=== PATIENT | male | born 1960 | race Caucasian/White ===

== ENCOUNTER 2017-05-06 13:28 | Emergency (ER) | payer MEDICARE, MEDICAID, SELFPAY ==
[2017-05-06 13:29] VITALS: BP 139/92; PULSE 74; RESP 16; TEMP 36.7; O2SAT 99; BMI 23.9
--- NOTE | 2017-05-06 16:42 | ED.VISSUMM ---
- ER Visit Summary Date of Service: 05/06/17 Chief Complaint: Back pain [] History of Present Illness: The patient is a 56 M [presents to the emergency department with back pain for last for 5 days. Patient has a history of chronic back pain. Patient is in pain management with Dr. Torrez out of [facility]. Patient currently taking Percocet and Lyrica for his pain. Patient states that the pain medicine is not controlling his pain over the last 4-5 days. Patient denies any injury. Patient does have prior lumbar fusion and cervical fusion history. Not had any fever. He has not had any change in bowel or bladder function. He denies weakness in extremities. Pain is typical of his chronic pain.] Physical Examination: [HEENT-PERRLA, EOMI. Cranial nerves II through XII grossly intact. TMs clear. Mucous membranes moist. No adenopathy. Cardiovascular-regular rate and rhythm without murmur or ectopy Lungs-clear to auscultation, chest wall stable without crepitus or subcu emphysema Abdomen-normoactive bowel sounds, soft, nontender, no rebound or rigidity, no peritoneal signs. Back exam-patient has tenderness palpation over the right lumbar paraspinal musculature and lumbar spine diffusely. Patient has negative straight leg raises. Deep tendon reflexes plus out of 4 bilaterally at the patella and Achilles. Patient has normal L5 extension. Normal sensation to light touch. Extremities-intact ?4, normal range of motion, normal pulses, atraumatic] Test Results: [None indicated] Emergency Department Course and Treatment: [I attempted to contact Dr. Torrez unsuccessfully. Patient understands I cannot write him any prescriptions. 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 Patient advised to return if weakness in extremities, change in bowel or bladder function, or condition should worsen in any way.] Impression: Acute exacerbation of chronic back pain [] This note was generated with C-Note[employer] software. It may contain incorrect words, spelling, and punctuation that were not noted in review of the chart prior to signing ED Disposition - Plan for ED Patient: Chief Complaint: Back Referrals: Brian Chance MD [Primary Care Provider] -
--- NOTE | 2017-05-06 16:45 | ED.DCSUM_ITS ---
- ER Visit Summary Date of Service: 05/06/17 Chief Complaint: Back pain [] History of Present Illness: The patient is a 56 M [presents to the emergency department with back pain for last for 5 days. Patient has a history of chronic back pain. Patient is in pain management with Dr. Torrez out of [facility]. Patient currently taking Percocet and Lyrica for his pain. Patient states that the pain medicine is not controlling his pain over the last 4-5 days. Patient denies any injury. Patient does have prior lumbar fusion and cervical fusion history. Not had any fever. He has not had any change in bowel or bladder function. He denies weakness in extremities. Pain is typical of his chronic pain.] Physical Examination: [HEENT-PERRLA, EOMI. Cranial nerves II through XII grossly intact. TMs clear. Mucous membranes moist. No adenopathy. Cardiovascular-regular rate and rhythm without murmur or ectopy Lungs-clear to auscultation, chest wall stable without crepitus or subcu emphysema Abdomen-normoactive bowel sounds, soft, nontender, no rebound or rigidity, no peritoneal signs. Back exam-patient has tenderness palpation over the right lumbar paraspinal musculature and lumbar spine diffusely. Patient has negative straight leg raises. Deep tendon reflexes plus out of 4 bilaterally at the patella and Achilles. Patient has normal L5 extension. Normal sensation to light touch. Extremities-intact ?4, normal range of motion, normal pulses, atraumatic] Test Results: [None indicated] Emergency Department Course and Treatment: [I attempted to contact Dr. Torrez unsuccessfully. Patient understands I cannot write him any prescriptions. 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 Patient advised to return if weakness in extremities, change in bowel or bladder function, or condition should worsen in any way.] Impression: Acute exacerbation of chronic back pain [] This note was generated with [employer]Mom[employer] software. It may contain incorrect words, spelling, and punctuation that were not noted in review of the chart prior to signing ED Disposition - Plan for ED Patient: Chief Complaint: Back Referrals: Brian Chance MD [Primary Care Provider] -
--- NOTE | 2017-05-06 16:45 | ED.DEP ---
ED Disposition - Plan for ED Patient: Chief Complaint: Back Instructions: ED Neck Back Pain General Referrals: Brian Chance MD [Primary Care Provider] - 5-7 Days Additional Instructions: see your pain management doctor
[2017-05-06] MEDS: HYDROmorphone 1 MG/ML Syringe IM (16:54)
[2017-05-06 16:59] VITALS: BP 147/87; PULSE 60; RESP 18; O2SAT 100
== END 2017-05-06 17:22 | disposition home or self-care (01) ==
PROVIDERS: Emergency Provider Emergency Medicine; Family Provider Family Medicine; PCP Family Medicine
DX: G89.29 Other chronic pain (principal); M54.9 Dorsalgia, unspecified; J44.9 Chronic obstructive pulmonary disease, unspecified; F32.9 Major depressive disorder, single episode, unspecified; F41.9 Anxiety disorder, unspecified; Z98.1 Arthrodesis status; Z87.891 Personal history of nicotine dependence
CPT/HCPCS: 99282

== ENCOUNTER 2017-06-02 11:49 | Emergency (ER) | payer MEDICARE, MEDICAID, SELFPAY ==
[2017-06-02 11:52] VITALS: BP 119/77; PULSE 66; RESP 17; TEMP 36.4; O2SAT 97; BMI 21.7
--- NOTE | 2017-06-02 13:35 | ED.VISSUMM ---
- ER Visit Summary Date of Service: 06/02/17 Chief Complaint: I have thrush again and I want to be admitted History of Present Illness: The patient is a 56 M hx of prior oral thrush. Patient was a history of chronic back pain, depression and Hodgkin's lymphoma 10 years ago which is since resolved. Had oral thrush approximately 1 week. Physical Examination: Vital signs are stable afebrile. Middle-age male no acute distress. Pulse is 97%. HEENT exam shows oral thrush. Moist mucous membranes. Neck nontender no lymphadenopathy. He has no trouble swallowing or breathing. Lungs clear to auscultation bilaterally. Heart regular rate and rhythm no murmur. Abdomen soft nontender. Moving all 4 extremities. Neurovascular intact. Neurologically is awake alert no focal motor deficits. Test Results: Seizures white count of 5 H&H 1647. His lites which were unremarkable gap of 6 normal BUN and creatinine. Emergency Department Course and Treatment: Patient was treated with IV fluids. Oral Diflucan. He is doing well repeat exam at 1535 and will be discharged home. Treatment Plan: It with Diflucan for 1 week. And nystatin swish and swallow. Disposition: Discharge Impression: Acute oral thrush This note was generated with [employer] dictation software. It may contain incorrect words, spelling, and punctuation that were not noted in review of the chart prior to signing ED Disposition - Plan for ED Patient: Chief Complaint: Other, Pain/Inj Referrals: Brian Chance MD [Primary Care Provider] -
[2017-06-02] MEDS: 0.9% Normal Saline 1,000 ML 1000 ML IV (13:49)
[2017-06-02] MEDS: Fluconazole 100 MG Tablet 200 MG PO (13:49)
[2017-06-02 13:55] VITALS: RESP 16
[2017-06-02 14:02] LABS: Absolute Neutrophil Count 2.6 X10^3/uL (2.0-7.7); Basophil# 0.05 X10^3/uL; Basophil% 0.9 % (0-1); Eosinophil# 0.17 X10^3/uL; Eosinophils% 3.1 % (0-5); Hematocrit 47.7 % (40-54); Hemoglobin 16.7 g/dl (13.0-16.5); Lymphocyte % 39.9 % (19-41); Mean Corpuscular Hgb 33.3 pg (27.0-32.0); Mean Platelet Vol. 9.8 fl (6.2-12.0); Monocyte# 0.53 X10^3/uL; Monocyte% 9.6 % (0-10); Neutrophil # 2.56 X10^3/uL (2.7-7.7); Neutrophil % 46.3 % (47-70); Platelet Count 273 K/mm3 (150-450); RBC Distribution Width CV 13.1 % (11.6-14.6); RBC Distribution Width SD 44.7 fl (35.1-43.9); Red Blood Count 5.02 M/mm3 (4.6-6.2); White Blood Count 5.5 K/mm3 (4.4-11.0)
[2017-06-02 14:06] LABS: POSITIVE COUNT NO; POSITIVE DIFFERENTIAL NO; POSITIVE MORPHOLOGY NO
[2017-06-02 14:10] LABS: Anion Gap 6 (5-15); BUN 10 mg/dL (7-18); BUN/Creat Ratio 10.9 RATIO (10-20); Calcium,Total 8.4 mg/dL (8.5-10.1); Chloride 110 mmol/L (98-107); Creatinine, Serum 0.92 mg/dL (0.70-1.30); EST Glomerular Filtration Rate 90 mL/min (>60); Est Glom Filt Rate - Afr Amer 109 mL/min (>60); Estimated Creatinine Clearance 84.58 ml/min; Glucose 87 mg/dL (74-106); Potassium 4.1 mmol/L (3.5-5.1); Sodium Level 140 mmol/L (136-145)
--- NOTE | 2017-06-02 15:37 | ED.DEP ---
ED Disposition - Plan for ED Patient: Disposition: Home or Assisted Living Chief Complaint: Other, Pain/Inj Instructions: Oral Thrush Prescriptions: Fluconazole [Diflucan] 200 mg PO DAILY #7 tab Nystatin 100,000 unit PO 4X/DAY 10 Days oral.susp Referrals: Brian Chance MD [Primary Care Provider] - 1 Week if not improving Additional Instructions: Use both Diflucan once a day and the nystatin swish and swallow thrush. Plenty fluids and rest. Your blood count and electrolytes looked well today. There is no need to admit to the hospital. Follow-up his primary care physician to ensure your improving.
[2017-06-02 15:49] VITALS: BP 125/63; PULSE 58; RESP 17; O2SAT 99
--- NOTE | 2017-08-08 12:51 | CASEMGMT ---
Social Work Note EDCP completed and approved for distribution. Attempted to contact pt twice via phone and their vm is not setup. EDCP packet mailed out via certified mail this date. Certified Tracking Number: [id number] Lisette Long MSW, [employer]
== END 2017-06-02 15:50 | disposition home or self-care (01) ==
PROVIDERS: Emergency Provider Emergency Medicine; Family Provider Family Medicine; PCP Family Medicine
DX: B37.0 Candidal stomatitis (principal); R19.7 Diarrhea, unspecified; F32.9 Major depressive disorder, single episode, unspecified; Z85.71 Personal history of Hodgkin lymphoma; Z72.0 Tobacco use
CPT/HCPCS: 80048; 85025; 96360; 99285; J7030

== ENCOUNTER 2017-07-04 08:56 | Emergency (ER) | payer MEDICARE, MEDICAID, SELFPAY ==
[2017-07-04 08:59] VITALS: BP 114/78; PULSE 72; RESP 17; TEMP 36.8; O2SAT 95; BMI 21.1
--- NOTE | 2017-07-04 09:21 | ED.DCSUM_ITS ---
- ER Visit Summary Date of Service: 07/04/17 Chief Complaint: Thrush History of Present Illness: The patient is a [address] Chance. Patient reports that 2 days ago he believes that he developed thrush ago. Reports is an aching pain is gradually gotten worse is 10 out of 10 worsening a 10 currently. Is worsened by swelling. Is taking Percocet without relief. Reports the pain is mainly under his tongue. Physical Examination: Vitals: Stable. Afebrile. General: Well-nourished and well-developed. Head: Normocephalic atraumatic. HEENT: White plaque under the right side of his tongue that is consistent with thrush. This does not involve his uvula or soft palate. Neck: Supple, no lymphadenopathy. No JVD. Nontender. Cardiovascular: Regular rate and rhythm. No murmurs. Respiratory: No respiratory distress. Clear to auscultation bilaterally. Abdominal: Soft, nontender, nondistended, normal bowel sounds. No guarding, rebound, or peritoneal signs. Back: Nontender. Extremities: Nontender, no edema. Skin: Normal color, no rash. Neurologic: Alert and oriented ?3. Cranial nerves II through XII are intact. Normal strength and sensation. Psych: Normal affect. Emergency Department Course and Treatment: Patient is chronically on pain medication as discussed the fact that I will not give him further pain medication for this. Treatment Plan: He will be discharged with Chlortrimazole lozenges. Instructed to follow-up with Dr. Chance in 1 week if not improving. Disposition: To home in improved and stable condition. Impression: 1. Thrush. This note was generated with [employer] dictation software. It may contain incorrect words, spelling, and punctuation that were not noted in review of the chart prior to signing ED Disposition - Plan for ED Patient: Disposition: Home or Assisted Living Chief Complaint: Sore Throat Instructions: Oral Thrush Prescriptions: Clotrimazole 10 mg MM 5X/DAY #70 eliu Referrals: Brian Chance MD [Primary Care Provider] - 1 Week
[2017-07-04 09:40] VITALS: PULSE 81; RESP 22; O2SAT 97
--- NOTE | 2017-07-04 09:41 | ED.RN ---
THIS NURSE REVIEWED D/C INSTRUCTIONS WITH PT. PT VERBALIZED UNDERSTANDING OF INSTRUCTIONS. PT DENIES FURTHER NEEDS OR QUESTIONS AT THIS TIME. PT AMBULATES FROM ROOM ON OWN WITHOUT ASSISTANCE FROM STAFF
== END 2017-07-04 09:42 | disposition home or self-care (01) ==
LOC: ED 09:25
PROVIDERS: Emergency Provider Emergency Medicine; Family Provider Family Medicine; PCP Family Medicine
DX: B37.9 Candidiasis, unspecified (principal); J02.9 Acute pharyngitis, unspecified; R05 Cough; R11.0 Nausea; J44.9 Chronic obstructive pulmonary disease, unspecified; F17.210 Nicotine dependence, cigarettes, uncomplicated; Z85.72 Personal history of non-Hodgkin lymphomas
CPT/HCPCS: 99282

== ENCOUNTER 2017-07-11 14:12 | Emergency (ER) | payer MEDICARE, MEDICAID, SELFPAY ==
[2017-07-11 14:13] VITALS: BP 136/84; PULSE 66; RESP 15; TEMP 36.7; O2SAT 98; BMI 21.4
[2017-07-11] MEDS: Ketorolac 30 MG/ML Syringe IV (15:24)
[2017-07-11] MEDS: 0.9% Normal Saline 1,000 ML 999 ML IV (15:24)
[2017-07-11] MEDS: proCHLORPERazine 10 MG/2 ML Vial IV (15:24)
[2017-07-11] MEDS: DiphenhydrAMINE 50 MG/ML Syringe IV (15:24)
[2017-07-11 15:26] LABS: Absolute Lymphocyte Count 1.91 X10^3/ul (0.83-4.51); Absolute Neutrophil Count 3.1 X10^3/uL (2.0-7.7); Basophil# 0.05 X10^3/uL; Basophil% 0.9 % (0-1); Eosinophils% 1.8 % (0-5); Hematocrit 46.9 % (40-54); Hemoglobin 16.3 g/dl (13.0-16.5); Lymphocyte # 1.91 X10^3/ul (4.0); Lymphocyte % 34.3 % (19-41); Mean Corp Hgb Conc 34.8 g/gl (32-36); Mean Corpuscular Hgb 33.3 pg (27.0-32.0); Mean Corpuscular Volume 95.7 fL (80-94); Mean Platelet Vol. 9.6 fl (6.2-12.0); Monocyte# 0.41 X10^3/uL; Monocyte% 7.4 % (0-10); Neutrophil # 3.09 X10^3/uL (2.7-7.7); Neutrophil % 55.4 % (47-70); Platelet Count 267 K/mm3 (150-450); RBC Distribution Width CV 13.5 % (11.6-14.6); RBC Distribution Width SD 46.5 fl (35.1-43.9); White Blood Count 5.6 K/mm3 (4.4-11.0)
[2017-07-11 15:27] LABS: POSITIVE COUNT NO; POSITIVE DIFFERENTIAL NO; POSITIVE MORPHOLOGY NO
[2017-07-11 15:44] LABS: Anion Gap 5 (5-15); BUN 9 mg/dL (7-18); Calcium,Total 9.1 mg/dL (8.5-10.1); Chloride 106 mmol/L (98-107); EST Glomerular Filtration Rate 93 mL/min (>60); Est Glom Filt Rate - Afr Amer 112 mL/min (>60); Estimated Creatinine Clearance 85.26 ml/min; Glucose 83 mg/dL (74-106); Potassium 3.9 mmol/L (3.5-5.1); Sodium Level 138 mmol/L (136-145)
--- NOTE | 2017-07-11 15:55 | ED.DCSUM_ITS ---
- ER Visit Summary Date of Service: 07/11/17 Chief Complaint: Headache History of Present Illness: The patient is a [address] Chance. He reports he has a headache that began this morning is gradually gotten worse. Is continues throbbing pain that is diffuse. Is 10 out of 10 severity. States he has had similar headaches multiple times in the past. He is taken 4 doses of Fioricet without relief. He has had nausea without vomiting. He does complain of photophobia. Physical Examination: Vitals: Stable. Afebrile. General: Well-nourished and well-developed. Head: Normocephalic atraumatic. Neck: Supple, no lymphadenopathy. No JVD. Nontender. Cardiovascular: Regular rate and rhythm. No murmurs. Respiratory: No respiratory distress. Clear to auscultation bilaterally. Abdominal: Soft, nontender, nondistended, normal bowel sounds. No guarding, rebound, or peritoneal signs. Back: Nontender. Extremities: Nontender, no edema. Skin: Normal color, no rash. Neurologic: Alert and oriented ?3. Cranial nerves II through XII are intact. Normal strength and sensation. Psych: Normal affect. Test Results: CBC is normal. Chem-7 is normal. Emergency Department Course and Treatment: Patient had an IV placed. He was given Compazine, Toradol, and Benadryl IV. When I reentered the room he is eating a sandwich and is in no distress. He feels much improved. Treatment Plan: He will be discharged instructions follow Dr. Chance in 1-2 days not improving. Return to the emergency department for any worsening symptoms. Disposition: To home in improved and stable condition. Impression: 1. Cephalgia, acute. This note was generated with [employer] software. It may contain incorrect words, spelling, and punctuation that were not noted in review of the chart prior to signing ED Disposition - Plan for ED Patient: Disposition: Home or Assisted Living Chief Complaint: Headache Instructions: ED Cephalgia Unspecified Referrals: Brian Chance MD [Primary Care Provider] - 1-2 Days if not improving
[2017-07-11 15:58] VITALS: BP 123/77; PULSE 67; RESP 15; O2SAT 99
== END 2017-07-11 16:14 | disposition home or self-care (01) ==
PROVIDERS: Emergency Provider Emergency Medicine; Family Provider Family Medicine; PCP Family Medicine
DX: R51 Headache (principal); R05 Cough; R11.0 Nausea; J44.9 Chronic obstructive pulmonary disease, unspecified; F17.200 Nicotine dependence, unspecified, uncomplicated; Z85.71 Personal history of Hodgkin lymphoma
CPT/HCPCS: 80048; 85025; 99284; J7030; A4216

== ENCOUNTER 2017-10-02 10:17 | Emergency (ER) | payer MEDICARE, MEDICAID, SELFPAY ==
[2017-10-02 10:19] VITALS: BP 137/88; PULSE 77; RESP 16; TEMP 36.3; O2SAT 96; BMI 22.2
--- NOTE | 2017-10-02 10:38 | ED.DCSUM_ITS ---
- ER Visit Summary Date of Service: 10/02/17 Chief Complaint: [] Left sided rib pain for a week after helping girlfriend up from the floor History of Present Illness: The patient is a 56 M [] has history of chronic recurrent neck back and rib pain he has been seen by orthopedics his primary care physicians pain management. He reports about 1 week ago he was in good health he was helping his girlfriend who was on the ground and the position beneath him as he lifted her up he felt a popping sensation in the left side of the ribs, he had persistent pain he saw his family doctors and he saw them again recently on the second visit he indicates the rib was manipulated and put back into place and for the most part his symptoms resolved, he was also put on a muscle relaxer, he also indicates he scheduled to see [facility] orthopedics for many other painful orthopedic conditions. Today he woke and he felt that the rib moved, had pain to the left side of the rib cage he called his family physicians and was instructed to come to the emergency department, he has had no obvious direct trauma he has had no fever or cough he has had no abdominal pain again he has had this before Physical Examination: [] vs within normal range the left subcostal margin complaining of pain to this area is actually a focal area of pain at the size of 1 fingertip, there is no crepitus there is no subcu air there is no signs of rib movement his HEENT and neck exam unremarkable his lungs sound clear his heart tones are normal his abdomen soft nontender his upper lower extremities unremarkable he usually walks with a cane he is awake and alert no distress when you touch this 1 area he complains of discomfort Test Results: [] Patient indicates he had a chest x-ray [facility] the other day does not wish to have one just wants his pain managed Emergency Department Course and Treatment: [] Has multiple allergies he has been under the management of pain management, he has multiple orthopedic painful conditions this appears to be directly related to some type of a rib process as above I explained to him we cannot really further manage his pain from the emergency department other than to provide him with IM Toradol he has been seen by his physicians this week, they prescribed no narcotics instead muscle relaxers I have explained to him we will provide the Toradol if he needs further additional pain management options he should discuss that with his primary care physicians or pain management physicians Treatment Plan: [] Disposition: [] Home stable Impression: [] Recurrent left chest wall discomfort This note was generated with [employer] dictation software. It may contain incorrect words, spelling, and punctuation that were not noted in review of the chart prior to signing ED Disposition - Plan for ED Patient: Chief Complaint: Other, Pain/Inj Referrals: Brian Chance MD [Primary Care Provider] -
--- NOTE | 2017-10-02 10:38 | ED.DEP ---
ED Disposition - Plan for ED Patient: Chief Complaint: Other, Pain/Inj Instructions: ED Chest Pain Costochondritis, ED Contusion Chest Wall Referrals: Brian Chance MD [Primary Care Provider] -
[2017-10-02] MEDS: Ketorolac 60 MG/2 ML Vial IM (11:00)
[2017-10-02 11:26] VITALS: BP 125/80; PULSE 75; RESP 14; O2SAT 99
== END 2017-10-02 11:27 | disposition home or self-care (01) ==
PROVIDERS: Emergency Provider Emergency Medicine; Family Provider Family Medicine; PCP Family Medicine
DX: R07.89 Other chest pain (principal)
CPT/HCPCS: 96372; 99282

== ENCOUNTER 2017-10-05 10:07 | Emergency (ER) | payer MEDICARE, MEDICAID, SELFPAY ==
[2017-10-05 10:09] VITALS: BP 149/81; PULSE 78; RESP 18; TEMP 36.6; O2SAT 98; BMI 22.1
--- NOTE | 2017-10-05 10:27 | ED.DCSUM_ITS ---
- ER Visit Summary Date of Service: 10/05/17 Chief Complaint: Left chest wall pain History of Present Illness: The patient is a 56 M who states that 3 weeks ago he tried to lift his significant other off the floor and developed pain left anterior lower ribs. Cells primary care physician and had negative x-rays. He returned to urgent care had manipulation and was given a muscle relaxant. He has been in the ER once and is also to return to his primary care physician. He presents to the ER on the Friday morning for his second ED visit for this. The patient denies any abdominal pain vomiting diarrhea. No urinary symptoms. No change in cough. No fevers. No weight loss. No rash. Patient states that during his last ED visit he received a dose of Toradol which did substantially help him. He does not wish any narcotics. Physical Examination: Afebrile vital signs are stable Gen: Well-nourished well-developed Head: Normocephalic atraumatic Eyes: Perrl EOMI ENT: TMs clear no rhinorrhea moist mucous membranes Neck: Supple no lymphadenopathy no JVD nontender CVS: Regular rate rhythm no murmurs normal S1-S2 Respiratory: No distress clear to auscultation bilaterally left anterior lower chest wall along the cartilage is very tender to palpation. There is no rash. It is worse with deep inspiration and touch. Abdomen: Soft nontender nondistended normal bowel sounds no masses Back: Nontender Extremity: Nontender no edema Skin: Normal color no rash Neuro: alert orientated ?3 CN II-XII intact normal strength sensation reflexes gait cerebellar Psych: Normal affect normal mood Test Results: X-rays of the ribs were negative. No obvious infiltrate. Emergency Department Course and Treatment: Patient received a dose of Toradol and Norflex. He will be discharged home with supportive care. Follow-up his primary care physician Impression: 1. Left costochondritis This note was generated with [employer] dictation software. It may contain incorrect words, spelling, and punctuation that were not noted in review of the chart prior to signing ED Disposition - Plan for ED Patient: Disposition: Home or Assisted Living Chief Complaint: Chest Other Instructions: ED Chest Pain Costochondritis Prescriptions: Ketorolac [Toradol] 10 mg PO Q8H PRN #10 tab PRN Reason: Pain Referrals: Brian Chance MD [Primary Care Provider] - 3-5 Days
[2017-10-05] MEDS: Ketorolac 60 MG/2 ML Vial IM (10:34)
[2017-10-05] MEDS: Orphenadrine 60 MG/2 ML Ampul IM (10:34)
== END 2017-10-05 11:00 | disposition home or self-care (01) ==
LOC: ED 10:49
PROVIDERS: Emergency Provider Emergency Medicine; Family Provider Family Medicine; PCP Family Medicine
DX: M94.0 Chondrocostal junction syndrome [Tietze] (principal); J44.9 Chronic obstructive pulmonary disease, unspecified; Z72.0 Tobacco use; Z85.71 Personal history of Hodgkin lymphoma; F32.9 Major depressive disorder, single episode, unspecified
CPT/HCPCS: 71101; 96372; 99283

== ENCOUNTER 2017-10-12 10:53 | Emergency (ER) | payer MEDICARE, MEDICAID, SELFPAY ==
[2017-10-12 10:53] VITALS: BP 149/79; PULSE 95; RESP 20; TEMP 37.2; O2SAT 98; BMI 21.5
--- NOTE | 2017-10-12 11:16 | ED.VISSUMM ---
- ER Visit Summary Date of Service: 10/12/17 Chief Complaint: Left rib pain History of Present Illness: The patient is a 56 M who is had left rib pain for the past 1 month. Patient states he initially had a rib out of place that was reduced. Pain improved for a short time but then recurred with muscle spasm. He has an appointment for follow-up this week. Patient has been seen here in the ER for the same and had x-rays performed on the that were unremarkable. Patient states that Toradol usually helps his pain. His last dose of Toradol was 4 days ago. Patient was reportedly written for Toradol tabs when he was seen in the ER last, but left before his paperwork was completed and never got the prescription. Physical Examination: Vital signs are unremarkable. Patient sitting upright on the side of the bed. He is uncomfortable but in no acute distress. Heart is regular rate and rhythm. Lung sounds are clear with good air movement. He has reproducible tenderness in the left lower anterior and lateral ribs. There is no crepitus. There is no ecchymosis. Abdomen is soft nontender. Skin examination reveals no overlying skin changes Test Results: [] Emergency Department Course and Treatment: I did review his recent x-ray which was unremarkable. Patient be given an IM injection of Toradol here and written a prescription for Toradol tabs. He is to follow-up with his doctor this week as planned. Treatment Plan: [] Disposition: Discharge Impression: Left rib pain This note was generated with [employer] dictation software. It may contain incorrect words, spelling, and punctuation that were not noted in review of the chart prior to signing ED Disposition - Plan for ED Patient: Chief Complaint: Chest Other Referrals: Brian Chance MD [Primary Care Provider] -
--- NOTE | 2017-10-12 11:18 | ED.DEP ---
ED Disposition - Plan for ED Patient: Disposition: Home or Assisted Living Chief Complaint: Chest Other Instructions: ED Strain Chest Wall Prescriptions: Ketorolac [Toradol] 10 mg PO Q6H PRN #20 tablet PRN Reason: Pain Referrals: Brian Chance MD [NON-STAFF] - Keep Jennifer appointment
[2017-10-12] MEDS: Ketorolac 60 MG/2 ML Vial IM (11:19)
[2017-10-12 11:24] VITALS: BP 123/92; O2SAT 98
[2017-10-12 11:29] VITALS: BP 123/92; O2SAT 98
== END 2017-10-12 11:40 | disposition home or self-care (01) ==
PROVIDERS: Emergency Provider Emergency Medicine; Family Provider Physician Assistant; PCP Physician Assistant
DX: R07.81 Pleurodynia (principal); J44.9 Chronic obstructive pulmonary disease, unspecified; Z72.0 Tobacco use; F32.9 Major depressive disorder, single episode, unspecified; F41.9 Anxiety disorder, unspecified; Z85.71 Personal history of Hodgkin lymphoma
CPT/HCPCS: 96372; 99283